=== PATIENT | male | born 1955 | race Caucasian/White ===

== ENCOUNTER → 2023-10-23 | Outpatient (CLI) | payer MEDICARE, OTHER ==
[~2023-10-23] VITALS: Ht 167.7 cm; Wt 70.6 kg
[~2023-10-23] MED LIST: AMLO-251 PO; ASPI-999 PO; ATOR10TA66 PO; FENO200C27 PO; MTP100TCR PO; MULT-974 PO; [UNRECOGNIZED DRUG - CODE] PO
== END | disposition home or self-care (01) ==
LOC: PREOP 05:36
PROVIDERS: ATTEND Specialist
DX: Z01.818 Encounter for other preprocedural examination (principal)

== ENCOUNTER 2023-10-30 09:43 | Day surgery (SDC) | payer MEDICARE, OTHER ==
[~2023-10-30] VITALS: Ht 167 cm; Wt 70.6 kg
[2023-10-30] VITALS (9 sets, daily range): BP systolic 104–156; BP diastolic 73–97
--- NOTE | 2023-10-30 09:59 | Progress Note-Pre Operative ---
Pre-Operative Progress Note Date of Available H&P: Oct 29, 2023 Date H&P Reviewed: Oct 30, 2023 Time H&P Reviewed: 09:59 History & Physical: H&P Reviewed, No changes noted Pre-Operative Diagnosis: bladder tumor, elevated psa Melanie HUBBARD MD Oct 30, 2023 09:59
[2023-10-30] MEDS ORDERED: LACTATED RINGERS 1,000 ML 1,000 ML IV PRN (10:15)
[2023-10-30] MEDS ORDERED: proPOfol INJECTION 200 MG/20 ML VIAL IV ONE (11:52)
[2023-10-30] MEDS ORDERED: SEVOFLURANE (ULTANE) 15 ML INHAL SOLN ONE (11:52)
[2023-10-30] MEDS ORDERED: ONDANSETRON INJECTION 4 MG/2 ML (SDV) ONE (11:52)
[2023-10-30] MEDS ORDERED: fentaNYL INJECTION 100 MCG/2 ML VIAL ONE (11:52)
[2023-10-30] MEDS ORDERED: LIDOCAINE PF 2% 5 ML VIAL ONE (11:52)
[2023-10-30] MEDS ORDERED: GLYCOPYRROLATE INJ 0.2 MG/ML 2 ML VIAL ONE (12:35)
--- NOTE | 2023-10-30 12:46 | Progress Note-Post Operative ---
Post-Operative Progess Note Surgeon (s)/High Value Associate (s) Surgeon Melanie HUBBARD MD High Value Associate n/a Pre-Operative Diagnosis bladder tumor, elevated psa Post-Operative Diagnosis same Post-Op Procedure Note Date of Procedure: Oct 30, 2023 Name of Procedure Performed: trus/biopsy prostate cysto/turbt Description & Findings Description and Findings: n/a Anesthesia Type gen Estimated Blood Loss minimal Packing none. Specimen(s) collected/removed prostate cores bladder tumor Melanie HUBBARD MD Oct 30, 2023 12:45
[2023-10-30] MEDS ORDERED: CIPR500S2 PO (12:51)
--- NOTE | 2023-10-30 12:52 | Discharge Inst-Urology ---
Discharge Inst-Urology Patient Instructions/Follow Up Plan/Assessment/Instructions Please make appointment to been seen in office in 5-7days for catheter removal and to review pathology. Increase oral fluids for 48 hours and then as needed. Diet as tolerated. Light activity. If questions or concerns contact your physician Or seek help at emergency department. Melanie HUBBARD MD Oct 30, 2023 12:52
--- NOTE | 2023-10-30 12:58 | Anesthesia-General Post-Op ---
General Patient Condition Mental Status/LOC: Same as Preop Cardiovascular: Satisfactory Nausea/Vomiting: Absent Respiratory: Satisfactory Pain: Controlled Complications: Absent Post Op Complications Complications None Follow Up Care/Instructions Patient Instructions None needed. Anesthesia/Patient Condition Patient Condition Patient is doing well, no complaints, stable vital signs, no apparent adverse anesthesia problems. No complications reported per nursing. JOSHUA ORLANDO CRNA Oct 30, 2023 12:58
[2023-10-30] MEDS ORDERED: ONDANSETRON INJECTION 4 MG/2 ML (SDV) IVP PRN (13:00)
[2023-10-30] MEDS ORDERED: morphine INJ 10 MG/ML 1ML (SYR OR VIAL) IVP ONE (13:00)
--- NOTE | 2023-10-30 21:41 | OPERATIVE REPORT ---
DATE OF SERVICE: 10/30/2023 PREOPERATIVE DIAGNOSIS: Elevated PSA and bladder tumor. POSTOPERATIVE DIAGNOSIS: Elevated PSA and bladder tumor. PROCEDURE PERFORMED: Transrectal ultrasound biopsy of prostate, cystoscopy and transurethral resection of 3 cm bladder tumor. INDICATIONS FOR SURGERY: Please see history and physical. DESCRIPTION OF PROCEDURE: After informed consent was obtained, general anesthetic was administered. The patient was placed in dorsal lithotomy position. Transrectal ultrasound was then performed. Prostate measured 78.7 mL, width 6 cm, height 4.1 cm, length 6.1 cm. Using ultrasound biopsy-guided, biopsies were obtained of the mid and lateral aspect of the base, mid apex bilaterally, one from each transitional zone, one from each seminal vesicle. After completing transrectal ultrasound biopsy of the prostate, the patient was then prepped and draped in dorsal lithotomy position. Cystoscopy with a 22-Palestinian cystoscope sheath with 30-degree lens revealed normal urethra. Prostatic urethra showed a large median lobe and lateral hypertrophy. Panendoscopy of bladder revealed normal ureteral orifices. A 3 cm sessile mass towards the left posterior wall. Cystoscope was then removed. A 26-Palestinian continuous flow resectoscope sheath was then inserted [ ] obturator removed and a 12 degree lens loop electro Grider working element and bipolar cautery were then used to resect the bladder tumor in its entirety. Plasma button electrode was then used to further fulgurate the bladder tumor edges and obtain hemostasis. All chips were evacuated from the bladder. The prostate was somewhat oozing, it was cauterized with the plasma button. A 20 Palestinian Archuleta catheter was placed and the patient taken to the recovery room having tolerated the procedure well. His urine was very light pink. Plan will be to discharge with the catheter in place. Follow up in my office in 5-7 days to have his catheter removed and go over pathology. He will be sent home on [facility] for 3 more days. Job ID: [id number] DocumentID: [id number] Dictated Date: 10/30/2023 13:19:21 Clam Picker Date: 10/30/2023 21:40:00 Dictated By: Francis HUBBARD MD
== END 2023-10-30 14:40 | disposition home or self-care (01) ==
LOC: SDC 09:43
PROVIDERS: ATTEND Specialist
DX: C67.9 Malignant neoplasm of bladder, unspecified (principal); N40.0 Benign prostatic hyperplasia without lower urinary tract symptoms; R97.20 Elevated prostate specific antigen [PSA]; Z87.891 Personal history of nicotine dependence
CPT/HCPCS: 87081